=== PATIENT | female | born 1990 | race Caucasian/White ===

== ENCOUNTER 2022-01-06 17:39 | Emergency (ER) | payer OTHER ==
[2022-01-06 18:51] LABS: Urine Blood Trace-lysed (Negative); Urine Glucose Trace (Negative); Urine Protein 2+ (Negative); Urine Specific Gravity <=1.005 (1.005-1.030)
[2022-01-06 19:07] LABS: Absolute Lymphocytes (CBC) 1.1 K/uL (0.7-4.9); Hematocrit 32.9 % (36.0-45.0); Lymphocytes % 10.5 % (15.3-44.8); MCV 75.5 fL (80-100); MPV 9.1 fL (7.6-11.3); RBC Red Blood Cell Count 4.35 M/uL (3.86-4.86)
[2022-01-06] MEDS ORDERED: NA CHLORIDE 0.9% 1,000 ML ONE (19:09)
[2022-01-06 19:15] LABS: Urine Bacteria <20 /HPF (<20); Urine Mucus Slight /HPF (None Seen); Urine RBC <5 /HPF (None Seen); Urine WBC Clump Occasional /HPF (None Seen)
[2022-01-06 19:27] LABS: Albumin 3.6 g/dL (3.4-5.0); Bilirubin Total 0.5 mg/dL (0.2-1.0); Potassium 3.8 mmol/L (3.5-5.1)
[2022-01-06] MEDS ORDERED: KETOROLAC 30 MG/ML INJ ONE (20:21)
[2022-01-06] MEDS ORDERED: CEFTRIAXONE 1000 MG/VIAL ONE (20:21)
--- NOTE | 2022-01-06 20:53 | RAD REPORT ---
EXAM DESCRIPTION: CT - Stone Protocol - 01/06/2022 8:44 pm CLINICAL HISTORY: Flank pain, kidney stone suspected COMPARISON: No comparisonsNo comparisons TECHNIQUE: Axial 3 mm thick images were obtained without oral or IV contrast. The [id number] span s the entirety of the system including uppermost abdomen and lung bases. All CT scans are performed using dose optimization technique as appropriate and may include automated exposure control or mA/KV adjustment according to patient size. FINDINGS: Mild left-sided hydronephrosis is present down to the UVJ level. Left kidney edematous rel ative to the right. No obstructing or nonobstructing calculi seen. There are numerous phleboliths deacon ng the pelvic floor, none of which can be localized to the ureter. No suspicious renal masses. Isoden se masses and pyelonephritis are not excluded on a stone protocol CT scan. No significant adrenal fin ding. No urinary bladder suspicious finding. Uterus is slightly lobulated and may contain fibroids. An acute uterine process is not seen. No suspi cious ovarian finding. Imaged portions of the liver, spleen and pancreas show no suspicious findings on non-contrast imaging . No gallbladder or biliary tree abnormality identified. No suspicious bowel findings. No suspicion for appendicitis. No hernia, mass or bulky lymphadenopathy noted. No free air, free fluid or inflammatory stranding. No significant bony abnormality. IMPRESSION: Mild left-sided hydronephrosis and hydroureter without obstructing calculus. Left kidney is edematous. Left findings could be secondary to a recently passed stone. Blood or inflammatory debris within t he ureter can give this presentation. Pyelonephritis would be a consideration as well given the presence of fever and chills.Isodense gustavo s cannot be excluded on stone protocol imaging.
--- NOTE | 2022-01-06 21:59 | EDPHYS ---
Physician Documentation [facility] Name: Janene Delcid Age: 31 yrs Sex: Female : 1990 Arrival Date: 01/06/2022 Time: 17:42 Bed 20 Private MD: ED Physician Robin Felix HPI: 01/06 19:00 This 31 yrs old Female presents to ER via Ambulatory with complaints of Low Back Pain, cp Chills. 19:00 The patient presents with pain that is acute, with no known mechanism of injury. The cp symptoms are located in the left mid back. The pain does not radiate. The problem was sustained from unknown cause. 19:00 Onset: The symptoms/episode began/occurred 4 day(s) ago. cp 19:00 Associated signs and symptoms: Pertinent positives: headache, chills. cp Historical: - Allergies: 17:53 PENICILLINS; hb - PMHx: 17:53 Asthma; hb - PSHx: 17:53 section; D\T\C; hb 17:54 Tubal Ligation; hb - Immunization history:: Adult Immunizations up to date. - Social history:: Smoking status: Patient denies any tobacco usage or history of. ROS: 19:10 Constitutional: Positive for body aches, chills, Negative for fever, poor PO intake. cp 19:10 Eyes: Negative for injury, pain, redness, and discharge. cp 19:10 Abdomen/GI: Negative for vomiting, diarrhea, constipation. 19:10 Back: Positive for pain at rest, pain with movement. Exam: 19:15 Constitutional: The patient appears in no acute distress, alert, awake, cp non-diaphoretic, non-toxic, well developed, well nourished, obese. 19:15 Head/Face: Normocephalic, atraumatic. cp 19:15 Chest/axilla: Inspection: normal. 19:15 Cardiovascular: Rate: normal, Rhythm: regular. 19:15 Respiratory: the patient does not display signs of respiratory distress, Respirations: normal, no use of accessory muscles, no retractions, labored breathing, is not present. 19:15 Abdomen/GI: Inspection: abdomen appears normal, Palpation: abdomen is soft and non-tender, in all quadrants. 19:15 Back: pain, that is moderate, of the left mid back. Vital Signs: 17:51 BP 145 / 77; Pulse 119; Resp 18; Temp 99; Pulse Ox 99% ; Weight 83.91 kg; Height 5 ft. hb (152.40 cm); Pain 6/10; 21:11 BP 110 / 57; Pulse 89; Resp 16; Temp 98.5(O); Pulse Ox 100% on R/A; Pain 0/10; aa9 21:33 BP 108 / 57; Pulse 84; Resp 17 S; Pulse Ox 95% on R/A; Pain 0/10; aa9 22:00 BP 113 / 72; Pulse 94; Resp 17 S; Pulse Ox 100% on R/A; aa9 17:51 Body Mass Index 36.13 (83.91 kg, 152.40 cm) hb MDM: 18:23 Patient medically screened. 01/06 18:45 Order name: CBC with Diff; Complete Time: 19:51 01/06 19:51 Interpretation: Normal except: HGB 10.8; HCT 32.9; MCV 75.5; MCH 24.8; RDW 15.8; JIMBO% cp 78.5; LYM% 10.5; NEUT A 8.4. 01/06 18:45 Order name: CMP; Complete Time: 19:51 01/06 21:02 Interpretation: Normal except: GLUC 121; BUN 5; GLOB 4.4; A/G 0.8. 01/06 18:45 Order name: Lipase; Complete Time: 19:51 01/06 18:45 Order name: Urine Microscopic Only; Complete Time: 19:51 01/06 21:02 Interpretation: Normal except: UWBC Clump Occasional; UWBC >50. 01/06 18:51 Order name: Urine Dipstick-Ancillary; Complete Time: 19:51 [facility] 01/06 19:52 Interpretation: UKET Trace; UBLD Trace-lysed; UPROT 2+; UNIT Positive; UESTR 3+; cp Reviewed. 01/06 19:21 Order name: Urine Culture [facility] 01/06 18:45 Order name: IV Saline Lock; Complete Time: 19:06 01/06 18:45 Order name: Labs collected and sent; Complete Time: 19:06 01/06 18:45 Order name: Urine Dipstick-Ancillary (obtain specimen); Complete Time: 18:51 cp 01/06 18:45 Order name: Urine Test (obtain specimen); Complete Time: 18:51 cp 01/06 19:54 Order name: CT Stone Protocol; Complete Time: 20:58 cp 01/06 21:01 Order name: Vital Signs: please update to include temp; Complete Time: 21:11 cp 01/06 21:03 Order name: PO challenge; Complete Time: 21:11 cp Administered Medications: 19:06 Drug: NS 0.9% 1000 ml Route: IV; Rate: 1 bolus; Site: right antecubital; mb8 22:07 Follow up: IV Status: Completed infusion; IV Intake: 1000ml aa9 20:17 Drug: Ketorolac 30 mg Route: IVP; Site: right antecubital; aa9 21:16 Follow up: Response: No adverse reaction aa9 20:17 Drug: Rocephin (cefTRIAXone) 1 grams Route: IV; Rate: calculated rate; Site: right aa9 antecubital; 21:16 Follow up: Response: No adverse reaction; IV Status: Completed infusion; IV Intake: [id number] Disposition Summary: 01/06/22 21:58 Discharge Ordered Location: Home cp Problem: new cp Symptoms: have improved cp Condition: Stable cp Diagnosis - Pyelonephritis acute cp Followup: cp - With: Private Physician - When: 2 - 3 days - Reason: Recheck today's complaints Discharge Instructions: - Discharge Summary Sheet cp - Pyelonephritis, Adult cp Forms: - Medication Reconciliation Form cp - Thank You Letter cp - Antibiotic Education cp - Prescription Opioid Use cp Prescriptions: - Zofran 4 mg Oral Tablet - take 1 tablet by ORAL route every 12 hours As needed; 20 tablet; Refills: 0, cp Product Selection Permitted - cefpodoxime 200 mg Oral Tablet - take 1 tablet by ORAL route every 12 hours for 10 days with food; 20 tablet; cp Refills: 0, Product Selection Permitted - Diclofenac Sodium 75 mg Oral tablet,delayed release (DR/EC) - take 1 tablet by ORAL route 2 times per day; 20 tablet; Refills: 0, Product cp Selection Permitted Signatures: Dispatcher [employer] EDJamir Daley PA PA cp Baxter, Heather, RN RN Abby Seaman RN RN aa9 Burak Brannon RN RN mb8 Corrections: (The following items were deleted from the chart) 17:53 17:53 PMHx: None; hb hb 21:02 20:59 Normal except: GLUC 121; BUN 5. cp cp
--- NOTE | 2022-01-06 21:59 | ER ---
Nurse's Notes [facility] Name: Janene Delcid Age: 31 yrs Sex: Female : 1990 Arrival Date: 01/06/2022 Time: 17:42 Bed 20 Private MD: Diagnosis: Pyelonephritis acute Presentation: 01/06 17:50 Chief complaint: Chief complaint: Left low back pain, chills, headaches, body aches, hb nausea, and SOB x 4 days. Denies urinary s/s. 17:51 Coronavirus screen: At this time, the client does not indicate any symptoms associated hb with coronavirus-19. Ebola Screen: No symptoms or risks identified at this time. Initial Sepsis Screen: Does the patient meet any 2 criteria? No. Patient's initial sepsis screen is negative. Does the patient have a suspected source of infection? No. Patient's initial sepsis screen is negative. Risk Assessment: Do you want to hurt yourself or someone else? Patient reports no desire to harm self or others. Onset of symptoms was January 03, 2022. 17:51 Method Of Arrival: Ambulatory hb 17:51 Acuity: SHEMAR 3 hb Historical: - Allergies: 17:53 PENICILLINS; hb - PMHx: 17:53 Asthma; hb - PSHx: 17:53 section; D\T\C; hb 17:54 Tubal Ligation; hb - Immunization history:: Adult Immunizations up to date. - Social history:: Smoking status: Patient denies any tobacco usage or history of. Screenin:05 Abuse screen: Denies threats or abuse. Denies injuries from another. Nutritional mb8 screening: No deficits noted. Tuberculosis screening: No symptoms or risk factors identified. Fall Risk None identified. Assessment: 19:05 Pain: Complains of pain in left flank Pain does not radiate. Pain currently is 5 out of mb8 10 on a pain scale. Quality of pain is described as aching. GI: Bowel sounds present X 4 quads. Abd is soft and non tender X 4 quads. Reports nausea. 20:04 General: Appears comfortable, Behavior is cooperative. Neuro: Level of Consciousness is aa9 awake, alert, obeys commands, Oriented to person, place, time, situation. Cardiovascular: Patient's skin is warm and dry. Respiratory: Airway is patent Respiratory effort is even, unlabored. 20:04 Pain: Complains of pain in back Pain currently is 4 out of 10 on a pain scale. aa9 21:13 General: Appears comfortable, Behavior is calm, cooperative. Pain: Denies pain. Neuro: aa9 Level of Consciousness is awake, alert, obeys commands. Cardiovascular: Patient's skin is warm and dry. Respiratory: Airway is patent Respiratory effort is even, unlabored. GI: Abd is soft and non tender X 4 quads. Vital Signs: 17:51 BP 145 / 77; Pulse 119; Resp 18; Temp 99; Pulse Ox 99% ; Weight 83.91 kg; Height 5 ft. hb (152.40 cm); Pain 6/10; 21:11 BP 110 / 57; Pulse 89; Resp 16; Temp 98.5(O); Pulse Ox 100% on R/A; Pain 0/10; aa9 21:33 BP 108 / 57; Pulse 84; Resp 17 S; Pulse Ox 95% on R/A; Pain 0/10; aa9 22:00 BP 113 / 72; Pulse 94; Resp 17 S; Pulse Ox 100% on R/A; aa9 17:51 Body Mass Index 36.13 (83.91 kg, 152.40 cm) hb ED Course: 17:42 Patient arrived in ED. ja2 17:53 Triage completed. hb 17:53 Arm band placed on. hb 18:11 Jamir Mata PA is PHCP. cp 18:12 Robin Felix MD is Attending Physician. cp 19:00 Inserted saline lock: 20 gauge in right antecubital area, using aseptic technique. mb8 Blood collected. 19:05 Patient has correct armband on for positive identification. Fall risk band placed. Bed mb8 in low position. Call light in reach. Side rails up X2. 19:05 No provider procedures requiring assistance completed. mb8 19:30 Abby Seaman, RN is Primary Nurse. aa9 20:46 CT Stone Protocol In Process Unspecified. EDMS 22:06 IV discontinued, intact, bleeding controlled, No redness/swelling at site. Pressure aa9 dressing applied. Administered Medications: 19:06 Drug: NS 0.9% 1000 ml Route: IV; Rate: 1 bolus; Site: right antecubital; mb8 22:07 Follow up: IV Status: Completed infusion; IV Intake: 1000ml aa9 20:17 Drug: Ketorolac 30 mg Route: IVP; Site: right antecubital; aa9 21:16 Follow up: Response: No adverse reaction aa9 20:17 Drug: Rocephin (cefTRIAXone) 1 grams Route: IV; Rate: calculated rate; Site: right aa9 antecubital; 21:16 Follow up: Response: No adverse reaction; IV Status: Completed infusion; IV Intake: [id number] Medication: 19:05 VIS not applicable for this client. mb8 Intake: 21:16 IV: 10ml; Total: 10ml. aa9 22:07 IV: 1000ml; Total: 1010ml. aa9 Outcome: 21:58 Discharge ordered by MD. cp 22:06 Discharged to home ambulatory, with family. aa9 22:06 Condition: stable 22:06 Discharge instructions given to patient, family, Instructed on discharge instructions, follow up and referral plans. medication usage, Demonstrated understanding of instructions, follow-up care, medications, Prescriptions given X 3. 22:07 Patient left the ED. aa9 Signatures: Dispatcher [employer] EDMS Jamir Mata PA PA cp Baxter, Heather, RN RN Milka Barrett [facility] Abby Seaman RN RN aa9 Burak Brannon RN RN mb8 Corrections: (The following items were deleted from the chart) 17:53 17:50 Chief complaint: hb hb 17:53 17:53 PMHx: None; hb hb 20:18 20:04 Respiratory: Airway is patent Respiratory effort is even, unlabored, aa9 aa9
[2022-01-08 20:58] VITALS: TEMP 98.5
[2022-01-08 21:31] VITALS: BP 113/72; O2SAT 100
== END 2022-01-06 22:07 | disposition home or self-care (01) ==
LOC: ER 17:39
DX: N10 Acute pyelonephritis (principal); Z88.0 Allergy status to penicillin
CPT/HCPCS: 96365; 96361; 87088; 85025; 87086; 36415; 83690; 80053; 76377; 74176; 96375; 99284; J7030; 81003; 81015